=== PATIENT | male | born 1990 | race Caucasian/White ===

== ENCOUNTER 2017-10-06 07:40 | Day surgery (SDC) | payer OTHER ==
[2017-10-06] MEDS ORDERED: Ringers Lactate 1,000 ML IV ONE (08:12)
[2017-10-06] MEDS ORDERED: CEFAZOLIN/SWI 1gm 1 GM/10 ML SYR ONE (08:12)
[2017-10-06] MEDS ORDERED: FENTANYL CITR 100 MCG/2 ML ONE (08:19)
[2017-10-06] MEDS ORDERED: MIDAZOLAM HCL 2 MG/2 ML INJ ONE ×2 (08:19→09:09)
[2017-10-06] MEDS ORDERED: PROPOFOL 200 MG/20 ML VIAL IV ONE (08:19)
[2017-10-06] MEDS ORDERED: LIDOCAINE 2% MPF 5 ML VIAL ONE (08:19)
[2017-10-06] MEDS ORDERED: ONDANSETRON HCL 40 MG/20 ML VIAL ONE (08:21)
[2017-10-06] MEDS ORDERED: ROCURONIUM 50 MG/5 ML VIAL IV ONE (08:21)
[2017-10-06] MEDS ORDERED: GLYCOPYRROLATE 0.2 MG/ML SYR ONE ×2 (08:21)
[2017-10-06] MEDS ORDERED: NEOSTIGMINE 1 MG/ML -5 ML SYRINGE ONE (08:25)
[2017-10-06] MEDS ORDERED: BUPIVACAINE 0.5% PF 10 ML VIAL ONE (08:36)
[2017-10-06] MEDS ORDERED: MEPERIDINE HCL 25 MG/0.5 ML ONE (10:22)
[2017-10-06] MEDS ORDERED: HYDROCODONE/APAP 7.5/325 MG TAB ONE (12:10)
--- NOTE | 2017-10-06 14:02 | OP ---
Date of Procedure: 10/06/2017 Surgeon: Noah Calhoun MD Edger Machine Operator: GABRIEL Chu. Preoperative Diagnosis: Left inguinal hernia. Postoperative Diagnosis: Left inguinal hernia. Procedure: Repair of left inguinal hernia. Estimated Blood Loss: Minimal. Specimen: Cord lipoma and hernia sac. Findings: As above. Anesthesia: General. Complications: None. Disposition: Disposition: The patient tolerated the procedure in stable condition and taken to Recovery in good g eneral condition. Operative Note: The patient was brought to the OR and placed in supine position. General anesthesia was begun. The patient was prepped and draped in usual sterile fashion. Marcaine 0.5% was infiltra lynsey in a field block fashion in the left groin. Then, 3 cm oblique incision was made between the pub ic tubercle and left anterior iliac superior spine. Subcutaneous tissue divided. Lianna fascia was identified and divided. Aponeurosis was identified and mobilized inferiorly to expose shelving edge and then opened through the external ring. The ilioinguinal nerve was identified and retracted out o f the field of dissection. Cord mobilized at the pubic tubercle and skeletonized. A large indirect sac and cord lipoma identified. High ligation with 2-0 Prolene suture ligature and free hand tie bobbi n on the sac and 2-0 chromic used to tie the base of the cord lipoma. Both structures excised and se nt to Pathology as specimen. Marlex mesh plug placed in the internal ring and secured with the Versa Tack stapler. Onlay mesh placed on the inguinal floor, secured medially to the pubic tubercle, super iorly to the conjoined tendon, inferiorly to the shelving edge, laterally to each other. Then, cord structures and ilioinguinal nerve placed back in anatomical location. Aponeurosis was closed with 2- 0 Prolene. The Lianna's fascia was closed with 3-0 chromic and then wound irrigated, bleeding contro lled with cautery, and 3-0 chromic also used to close the skin. Sterile dressing was applied. The p atient was awakened and taken to Recovery in good general condition. Discharge Note: The patient will go to Day-Surgery and home when stable. Disposition: Home. Condition: Stable. Discharge Instructions: Resume home medications and diet. Activity as tolerated. No heavy lifting. Remove outer dressing in 2 days. Shower. Keep wound clean and dry. Keep Steri-Strips on all time s. Ice pack, scrotal support. Follow up in my office in a week. Call for appointment. Tylenol No. 3 one tablet p.o. q.4 p.r.n. pain. /DANILO Voice ID: [id number] Report ID: [id number]
== END 2017-10-06 12:40 | disposition home or self-care (01) ==
LOC: OR 07:40
PROVIDERS: ATTEND Surgery
PROC: 0YQ60ZZ Repair Left Inguinal Region, Open Approach (ICD-10-PCS; principal; 2017-10-06 09:00)
DX: K40.90 Unilateral inguinal hernia, without obstruction or gangrene, not specified as recurrent (principal)
CPT/HCPCS: 88302; J0690; J2175; J2250; J2405; J2710; J3010